=== PATIENT | male | born 1985 | race African-American/Black ===

== ENCOUNTER 2017-05-15 16:22 | Emergency (ER) | payer OTHER ==
[2017-05-15 19:12] VITALS: BP 134/71
== END 2017-05-15 19:12 | disposition home or self-care (01) ==
LOC: ED 16:22
DX: T78.3XXA Angioneurotic edema, initial encounter (principal); Y92.89 Other specified places as the place of occurrence of the external cause; I10 Essential (primary) hypertension
CPT/HCPCS: J7512